=== PATIENT | female | born 1990 | race Caucasian/White ===

== ENCOUNTER 2017-02-23 13:02 | Emergency (ER) | payer SELFPAY ==
[~2017-02-23] VITALS: Ht 157.5 cm; Wt 48.0 kg
[2017-02-23 13:04] VITALS: BP 123/79; PULSE 98; RESP 16; TEMP 97.9; O2SAT 99
--- NOTE | 2017-02-23 13:17 | PD ---
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 PT WITH R OVARIAN PAIN FOR 2 DAYS AND VAG BLEEDING YEST. VSS. PT AWAITING BED PLACEMENT Data Data Last Documented VS Vital Signs Date Time Temp Pulse Resp B/P Pulse Ox O2 Delivery O2 Flow Rate FiO2 02/23/17 13:04 97.9 98 16 123/79 99 MDM Medical Record Reviewed: Yes Supervised Visit with MAR: Yes Scripts No Active Prescriptions or Reported MedSaul Motley Feb 23, 2017 13:17
--- NOTE | 2017-02-23 13:55 | PD ---
HPI . 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 It is associated with some vaginal bleeding. She states that her last normal menstrual cycle was on January 24. She endorses dyspareunia and a vaginal discharge. Her corn cutter for same and has had an ultrasound which shows an ovarian cyst. Pain is exacerbated by sexual intercourse. No relieving factor. Pain and bleeding are described as severe. PFSH Past Medical History Medical History: Denies Significant Hx Diminished Hearing: No ?: Not LMP: 01/24/2017 : 5 Para: 1 Miscarriage: 4 Ovarian Cysts: Yes Dilation and Curettage (D&C): Yes (X3) Past Surgical History Gynecologic Surgery: Yes (OVarian CYSTS) Other Surgery: Yes (6 CYST REMOVED FROM R OVARY) Social History Alcohol Use: No Tobacco Use: Yes (1/2-1 PPD) Substance Use: No Allergies-Medications (Allergen,Severity, Reaction): Coded Allergies: Morphine (Verified Adverse Reaction, Intermediate, Nausea/Vomiting, 02/23/17 ) NO ALLERGY; GI UPSET. Reported Meds & Prescriptions Reported Meds & Active Scripts Active Ibuprofen 800 Mg Tab 800 Mg PO Q8H PRN Ultram (Tramadol HCl) 50 Mg Tab 50 Mg PO Q4H PRN Flagyl (Metronidazole) 500 Mg Tab 500 Mg PO BID 7 Days Doxycycline Hyclate 100 Mg Cap 100 Mg PO BID Review of Systems Except as stated in HPI: all other systems reviewed are Neg General / Constitutional: No: Fever, Chills Gastrointestinal: No: Nausea, Vomiting, Diarrhea Genitourinary: Positive: Pelvic Pain, Dyspareunia, Discharge, Vaginal Bleeding , No: Urgency, Frequency, Dysuria Physical Exam Narrative GENERAL: Awake and alert and in no acute distress. SKIN: Warm and dry. HEAD: Atraumatic. Normocephalic. EYES: Pupils equal and round. ENT: No nasal bleeding or discharge. Mucous membranes pink and moist. NECK: Trachea midline. CARDIOVASCULAR: Regular rate and rhythm. RESPIRATORY: No accessory muscle use. GASTROINTESTINAL: Abdomen soft, non-tender, nondistended. : Normal external female genitalia. Scant yellowish discharge in the vaginal vault. Cervical os is closed. Bimanual exam is exquisitely tender. No masses palpated. MUSCULOSKELETAL: No obvious deformities. No edema. NEUROLOGICAL: Awake and alert. No obvious cranial nerve deficits. Motor grossly within normal limits. Normal speech. PSYCHIATRIC: Appropriate mood and affect; insight and judgment normal. Data Data Last Documented VS Vital Signs Date Time Temp Pulse Resp B/P Pulse Ox O2 Delivery O2 Flow Rate FiO2 02/23/17 13:04 97.9 98 16 123/79 99 Orders Gc And Chlamydia Pcr (02/23/17 14:18) Wet Prep Profile (02/23/17 14:18) Ceftriaxone Inj (Rocephin Inj) (02/23/17 14:30) Lidocaine 1% Inj (50 Ml) (Xylocaine 1% I (02/23/17 14:30) Ed Urine Pregnancytest Poc (02/23/17 14:18) Labs Laboratory Tests Test 02/23/17 14:20 Clue Cells (Wet Prep) NONE SEEN Vaginal Trichomonas (Wet Prep) NONE SEEN Vaginal Yeast (Wet Prep) NONE SEEN MDM Medical Decision Making Medical Screen Exam Complete: Yes Emergency Medical Condition: Yes Differential Diagnosis Differential diagnosis of pelvic pain includes but is not limited to UTI, PID, ectopic , spontaneous AB, constipation, viral illness Narrative Course Patient presents for pelvic pain. Exam is consistent with PID. Wet prep is negative. Bedside test was negative. Diagnosis Primary Impression: PID (acute pelvic inflammatory disease) Patient Instructions: General Instructions, Pelvic Inflammatory Disease (DC) Med/Other Pt SpecificInfo: Prescription(s) given Scripts Ibuprofen 800 Mg [id number] Mg PO Q8H PRN (pain) #30 TAB Ref 0 Prov:Carolee Stanley MD 02/23/17 Tramadol (Ultram)50 Mg Tab50 Mg PO Q4H PRN (PAIN) #12 TAB Ref 0 Prov:Carolee Stanley MD 02/23/17 Metronidazole (Flagyl)500 Mg [id number] Mg PO BID 7 Days Ref 0 Prov:Carolee Stanley MD 02/23/17 Doxycycline Hyclate 100 Mg [id number] Mg PO BID #20 CAP Ref 0 Prov:Carolee Stanley MD 4/9/17 Disposition: 01 DISCHARGE HOME Condition: Stable Carolee Stanley MD Feb 23, 2017 13:55
[2017-02-23] MEDS ORDERED: ULTR50TA5 PO (14:18)
[2017-02-23] MEDS ORDERED: METR-1 PO (14:18)
[2017-02-23] MEDS ORDERED: DOXY100C PO (14:18)
[2017-02-23] MEDS ORDERED: IBUP800T23 PO (14:18)
[2017-02-23] MEDS ORDERED: cefTRIAXone 250 MG VIAL IM ONE (14:30)
[2017-02-23] MEDS ORDERED: LIDOCAINE HCL 1% 50 ML VIAL IM ONE (14:30)
[2017-02-23 16:29] LABS: CHLAMYDIA PCR NOT DETECTED (NOT DETECT); NEISSERIA PCR NOT DETECTED (NOT DETECT)
== END 2017-02-23 15:29 | disposition home or self-care (01) ==
LOC: NEPD 13:02
DX: N73.9 Female pelvic inflammatory disease, unspecified (principal)
CPT/HCPCS: 84703; 87210; 87491; 87591; 96372; 99284; J0696